=== PATIENT | female | born 1980 | race Caucasian/White ===

== ENCOUNTER 2021-10-21 15:48 | Emergency (ER) | payer OTHER, SELFPAY ==
[2021-10-21 16:32] VITALS: BP 128/77; PULSE 85; TEMP 37; O2SAT 98; BMI 41.3
--- NOTE | 2021-10-21 19:20 | CRLHL7_ITS ---
For Patients: As a result of the Century Cures Act, medical imaging exams and procedure reports are released immediately into your electronic medical record. You may view this report before your referring provider. If you have questions, please contact your health care provider. INDICATION: Shortness of breath. TECHNIQUE: AP portable chest. COMPARISON: Two-view chest September 02, 2017. FINDINGS: Clear lungs. Normal heart size and pulmonary vascularity. Normal included skeleton. IMPRESSION: Negative chest. No change other than technique. Dictated by John Poon MD @ 10/21/2021 7:49:43 PM (Electronically Signed)
[2021-10-21 19:53] VITALS: BP 141/80; PULSE 64; RESP 64; TEMP 36.8; O2SAT 97
[2021-10-21 20:33] LABS: Chloride* 103 mmol/L (96-114); Potassium* 3.7 mmol/L (3.6-5.1); Sodium* 137 mmol/L (135-149)
[2021-10-21 20:36] LABS: Creatinine* 0.6 mg/dL (0.5-1.5); Est. Creatinine Clearance* 130.25; Estimated Glomerular Filt Rate 116 ml/min; Hemoglobin* 12.5 gm/dL (12.0-16.0); Red Blood Count 4.68 m/uL (4.00-5.20); White Blood Count* 8.51 K/uL (4.50-11.00)
[2021-10-21 20:37] LABS: Blood Urea Nitrogen* 14 mg/dL (5-24); Calcium* 9.2 mg/dL (8.4-10.6); Carbon Dioxide* 24 mmol/L (20-32); Glucose* 101 mg/dL (60-115); Hematocrit 37.7 % (33.0-51.0); Mean Corpuscular HGB Conc 33 gm/dL (32-36); Mean Corpuscular Hemoglobin 27 pg (26-34); Mean Corpuscular Volume 81 fL (80-100); Platelet Count* 334 K/uL (140-440); RDW Coefficient of Variation % 13.9 % (11.5-15.5)
[2021-10-21 20:38] LABS: Basophils Percent Auto 0.2 % (0.0-3.0); Eosinophils Percent Auto 0.7 % (0.0-7.0); Lymphocytes Percent Auto 24.6 % (20-44); Monocytes Percent Auto 5.4 % (0.0-11.0)
[2021-10-21 20:39] LABS: Slide Review Reflex No
[2021-10-21 20:40] LABS: C Reactive Protein* 1.2 mg/dL (0.5-1.0)
--- NOTE | 2021-10-21 20:53 | ED_ITS ---
HPI - General Adult General Date Seen: 10/21/21 Chief complaint: Dizziness/Vertigo Stated complaint: Dizziness Time Seen by Provider: 10/21/21 19:02 Source: patient History of Present Illness HPI narrative: Patient is a 40-year-old woman who presents for evaluation of near syncope, concerns about a lump in her right chest, and also concerns about ongoing fatigue. She has an appointment made with her primary doctor for later this week regarding the lump on her chest, which she has been noticing for the past several days or so. Today however, she was at work when she suddenly felt a sharp pain in the area that lump, and then felt a warm sensation wash across her chest on both sides and then into her arms. Then she felt lightheaded like she might faint. She did not faint, and feeling past, but then she became concerned that all these things might be linked and thought she should be checked out. 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 She says that she was worked up once for abnormal coagulopathies and this was negative. She does not have any chest pain per se, does not have any shortness of breath. She always has some swelling in her ankles related to previous vein stripping but does not have any leg pain. She is concerned about possible thyroid disease, she says that she has had unusual fatigue for quite some time, she has tried to lose weight unsuccessfully, and feels that she has had some unusual hair loss as well. She says that her thyroid has been tested in the past but she does not feel that it has been looked into as thoroughly as it should be. Related Data Home Medications Medication Instructions Recorded Confirmed No Known Home Medications 10/21/21 10/21/21 Allergies Allergy/AdvReac Type Severity Reaction Status Date / Time No Known Drug Allergies Allergy Verified 10/21/21 16:38 Review of Systems Status of ROS: Reports: 10 or more systems reviewed and unremarkable except as noted in History and below [facility] Social History Smoking Status: Former smoker Do you use any of these nicotine containing products: None How often do you have a drink containing alcohol: monthly or less How many standard drinks containing alcohol do you have on a typical day: 1 or 2 How often do you have six or more drinks on one occasion: Never AUDIT-C Alcohol total score: 1 Non-prescribed substance use: denies use Exam Narrative: Exam Narrative: Vital signs as noted above. In general, an alert, well-appearing woman. Head: Normocephalic, atraumatic. Eyes: Pupils are equal reactive. Extraocular movements are full. Conjunctivae are normal. ENT: Mucous membranes are moist. Throat is normal. Neck: Supple without lymphadenopathy. No masses. Thyroid is normal. Heart: Regular rate and rhythm. No murmur or rub. Chest wall is normal. The mass that she feels I believe is the end of her clavicle on the right. Lungs: Clear bilaterally. No increased work of breathing, crackles or wheezes. Abdomen: Soft and nontender. No organomegaly. Extremities: Well perfused. Scant edema bilateral ankles. No calf tenderness. Pulses intact. Neurologic: Patient is alert and oriented to person and place. Speech is fluent. Face is symmetric. Moves all extremities equally. Affect: Normal. Skin: Warm and dry. Well perfused. Const: Vital Signs, click to edit/add: Vital Signs - 24 hr 10/21/21 16:32 10/21/21 19:53 Temperature 98.6 F 98.2 F Pulse Rate [Pulse Oximeter] 85 64 Respiratory Rate 64 H Blood Pressure [Ri ght Upper Arm] 128/77 141/80 H Pulse Oximetry 98 97 Oxygen Delivery Me thod Room Air Room Air Course Course Hospital Course: An EKG by my review shows a normal sinus rhythm, ventricular rate of 65. QT corrected is [address] segment changes. P.r. is normal at 180 milliseconds. She had a portable chest x-ray which by my review is n egative. No pneumothorax, infiltrate or unusual masses. The final radiology read is likewise negative. Labs thus far show a white blood cell count of 8.5, hemoglobin of 12.5. D-dimer is negative at 0.4. Electrolytes are normal, sodium 137, potassium 3.7. CRP is very slightly elevated at 1.2. TSH is currently pending I discussed with her that her episode earlier sounds most consistent with a vasovagal type spell to me. I do not see anything concerning on her EKG and at this time do not have specific reason to suspect dysrhythmia. She is not reporting palpitations. Her D-dimer is reassuringly negative, I do not think this represents pulmonary embolism. We did talk about her fatigue and difficulty losing weight, these can certainly be multifactorial, and while it is tempting to believe that these can be solved with something as simple as taking Synthroid, often it is not that straight forward. TSH is pending at this time, patient has been in the emergency department for a significant amount of time due to long wait times in triage. I am comfortable sending her home with a TSH pending, if it is abnormal we can contact her by phone. She would prefer that as well. She does have an appointment later this week and she can keep that with her primary doctor. If she has any fainting spells or significant worsening return to the emergency department. Otherwise, follow-up as planned. Vital Signs Vital signs: Initial Vital Signs Temperature 98.6 F 10/21/21 16:32 Temperature Source Temporal Artery Scan 10/21/21 16:32 Pulse Rate 85 10/21/21 16:32 Blood Pressure 128/77 10/21/21 16:32 Blood Pressure Mean 94 10/21/21 16:32 Blood Pressure Position Supine 10/21/21 16:32 Pulse Oximetry 98 10/21/21 16:32 Oxygen Delivery Method 10/21/21 16:32 Vital Signs Temperature 98.6 F 10/21/21 16:32 Pulse Rate 85 10/21/21 16:32 Blood Pressure 128/77 10/21/21 16:32 Pulse Oximetry 98 10/21/21 16:32 Oxygen Delivery Method 10/21/21 16:32 Temperature 98.2 F 10/21/21 19:53 Pulse Rate 64 10/21/21 19:53 Respiratory Rate 64 H 10/21/21 19:53 Blood Pressure 141/80 H 10/21/21 19:53 Pulse Oximetry 97 10/21/21 19:53 Oxygen Delivery Method 10/21/21 19:53 Medical Decision Making Lab Data Labs: Lab Results 10/21/21 10/21/21 10/21/21 Range/Units 19:49 19:49 19:49 WBC 8.51 (4.50-11.00) K/uL RBC 4.68 (4.00-5.20) m/uL Hgb 12.5 (12.0-16.0) gm/dL Hct 37.7 (33.0-51.0) % MCV 81 (80-100) fL MCH 27 (26-34) pg MCHC 33 (32-36) gm/dL RDW Coeff of Karen 13.9 (11.5-15.5) % Plt Count 334 (140-440) K/uL Neut % (Auto) 69.0 (42.0-72.0) % Lymph % (Auto) 24.6 (20-44) % Warren % (Auto) 5.4 (0.0-11.0) % Eos % (Auto) 0.7 (0.0-7.0) % Baso % (Auto) 0.2 (0.0-3.0) % Neut # (Auto) 5.90 (1.7-7.0) K/uL Lymph # (Auto) 2.10 (0.90-2.90) K/uL Warren # (Auto) 0.50 (0.00-0.90) K/UL Eos # (Auto) 0.10 (0.00-0.50) K/uL Baso # (Auto) 0.00 (0.00-0.30) K/uL Abs Immat Gran (auto) 0.00 (0.00-0.30) K/uL Imm/Tot Granulo (auto) 0.0 % ESR (2-20) mm/hr D-Dimer Quant (PE/DVT) 0.40 (0.00-0.50) ug/ml Sodium 137 (135-149) mmol/L Potassium 3.7 (3.6-5.1) mmol/L Chloride 103 (96-114) mmol/L Carbon Dioxide 24 (20-32) mmol/L BUN 14 (5-24) mg/dL Creatinine 0.6 (0.5-1.5) mg/dL Estimated Creat Clear 130.25 Estimated GFR 116 ml/min Glucose 101 (60-115) mg/dL Calcium 9.2 (8.4-10.6) mg/dL C-Reactive Protein 1.2 H (0.5-1.0) mg/dL 10/21/21 Range/Units 19:49 WBC (4.50-11.00) K/uL RBC (4.00-5.20) m/uL Hgb (12.0-16.0) gm/dL Hct (33.0-51.0) % MCV (80-100) fL MCH (26-34) pg MCHC (32-36) gm/dL RDW Coeff of Karen (11.5-15.5) % Plt Count (140-440) K/uL Neut % (Auto) (42.0-72.0) % Lymph % (Auto) (20-44) % Warren % (Auto) (0.0-11.0) % Eos % (Auto) (0.0-7.0) % Baso % (Auto) (0.0-3.0) % Neut # (Auto) (1.7-7.0) K/uL Lymph # (Auto) (0.90-2.90) K/uL Warren # (Auto) (0.00-0.90) K/UL Eos # (Auto) (0.00-0.50) K/uL Baso # (Auto) (0.00-0.30) K/uL Abs Immat Gran (auto) (0.00-0.30) K/uL Imm/Tot Granulo (auto) % ESR 7 (2-20) mm/hr D-Dimer Quant (PE/DVT) (0.00-0.50) ug/ml Sodium (135-149) mmol/L Potassium (3.6-5.1) mmol/L Chloride (96-114) mmol/L Carbon Dioxide (20-32) mmol/L BUN (5-24) mg/dL Creatinine (0.5-1.5) mg/dL Estimated Creat Clear Estimated GFR ml/min Glucose (60-115) mg/dL Calcium (8.4-10.6) mg/dL C-Reactive Protein (0.5-1.0) mg/dL Discharge Plan Discharge Clinical Impression: Near syncope Patient Disposition: Home, Self-Care Condition: Improved Instructions: Near Syncope (ED) Additional Instructions: Follow-up with your doctors plan. Your thyroid test is pending at this time but we will call you if it is significantly abnormal. This can be followed up with your primary doctor. If you have fainting spells, or other acute worsening, return to the emergency department at any time. Prescriptions: No Action No Known Home Medications Follow Up/Referrals: Nhung Michelle, [employer], [employer] [Primary Care Provider] - Stand Alone Forms: MyHealth Info Instructions
[2021-10-21 21:18] LABS: Erythrocyte SedimentationRate* 7 mm/hr (2-20)
== END 2021-10-21 21:25 | disposition home or self-care (01) ==
PROVIDERS: Emergency Provider Emergency Medicine; PCP Nurse Practitioner Family
DX: R42 Dizziness and giddiness (principal)
CPT/HCPCS: 36415; 71045; 80048; 84443; 85025; 85379; 85651; 86140; 93005; 99284; 99285

== ENCOUNTER 2021-10-24 08:14 | Outpatient (CLI) | payer OTHER, SELFPAY ==
[2021-10-24 16:13] LABS: Free T4 Free Thyroxine* 0.86 ng/dL (0.70-1.85)
[2021-10-26 19:46] LABS: Cortisol, Serum 6.8 ug/dL
[2021-10-26 20:08] LABS: Free T3 3.2 pg/mL (2.5-4.3)
[2021-10-26 21:15] LABS: TPO Antibody < 0.3 IU/mL (0.0-9.0); Thyroglob Bill Billed; Thyroglobulin Antibody < 0.9 IU/mL (0.0-4.0); Thyroglobulin, Serum or Plasma 8.4 ng/mL (1.3-31.8)
[2021-10-31 05:58] LABS: T3 Reverse - LC-MS/MS 11.6 ng/dL (9.0-27.0); T3, Ratio (T3:RT3) 11.1 (4.2-11.0); T3, Total - LC-MS/MS 129 ng/dL (80-200)
== END 2021-10-24 08:15 | disposition home or self-care (01) ==
PROVIDERS: PCP Nurse Practitioner Family; Visit Provider Nurse Practitioner Family
DX: R53.83 Other fatigue (principal)
CPT/HCPCS: 36415; 82533; 84439; 84480; 84481; 84482; 86376; 86800

== ENCOUNTER 2022-02-23 10:23 | Outpatient (CLI) | payer OTHER, SELFPAY ==
[2022-02-23 14:36] LABS: Vitamin B12* 767 pg/mL (243-894)
== END 2022-02-23 10:24 | disposition home or self-care (01) ==
PROVIDERS: PCP Nurse Practitioner Family; Visit Provider Nurse Practitioner Family
DX: Z13.21 Encounter for screening for nutritional disorder (principal)
CPT/HCPCS: 82607

== ENCOUNTER 2022-05-25 11:10 | Outpatient (CLI) | payer OTHER, SELFPAY ==
--- NOTE | 2022-05-25 11:30 | CRLHL7_ITS ---
For Patients: As a result of the Century Cures Act, medical imaging exams and procedure reports are released immediately into your electronic medical record. You may view this report before your referring provider. If you have questions, please contact your health care provider. BILATERAL SCREENING MAMMOGRAM WITH COMPUTER-AIDED DETECTION AND TOMOSYNTHESIS TECHNIQUE: CC and MLO views were obtained. These mammographic images have been obtained using full-field digital technique. These mammographic images were interpreted with the benefit of computer-aided detection. Breast Tomosynthesis was used in this interpretation. COMPARISON FILM: Baseline. FINDINGS: There are scattered areas of fibroglandular density IMPRESSION: There is no radiographic evidence for malignancy. ASSESSMENT: BI-RADS Category 1: Negative RECOMMENDATION: Routine screening mammogram in 1 year. A lay language report of this examination will be provided to the patient. Baldev Thomas M.D. Diagnostic Radiologist [email or web address] TONJA/chana / be/Dictated by: Baldev Thomas MD @ 05/25/2022 12:04:00 PM (Electronically Signed)
== END 2022-05-25 11:11 | disposition home or self-care (01) ==
LOC: MAMMO 11:11
PROVIDERS: PCP Nurse Practitioner Family; Visit Provider Nurse Practitioner Family
DX: Z12.31 Encounter for screening mammogram for malignant neoplasm of breast (principal)
CPT/HCPCS: 77063; 77067

== ENCOUNTER 2023-03-29 09:09 | Outpatient (CLI) | payer OTHER, SELFPAY ==
[2023-03-29 13:51] LABS: Chlamydia DNA Amplified* NOT DETECTED (No Detected); GC DNA Amplified* NOT DETECTED (No Detected)
== END 2023-03-29 09:10 | disposition home or self-care (01) ==
PROVIDERS: PCP Nurse Practitioner Family; Visit Provider Obstetrics & Gynecology
DX: N93.8 Other specified abnormal uterine and vaginal bleeding (principal); Z11.3 Encounter for screening for infections with a predominantly sexual mode of transmission
CPT/HCPCS: 82627; 83001; 83498; 84146; 84403; 87491; 87591

== ENCOUNTER 2023-03-29 13:43 | Outpatient (CLI) | payer OTHER, SELFPAY ==
--- NOTE | 2023-03-29 14:00 | CRLHL7_ITS ---
For Patients: As a result of the Century Cures Act, medical imaging exams and procedure reports are released immediately into your electronic medical record. You may view this report before your referring provider. If you have questions, please contact your health care provider. INDICATION: Dysfunctional uterine bleeding TECHNIQUE: Transabdominal and transvaginal scanning was performed. Transvaginal scanning was performed to optimally evaluate the endometrium and adnexa. Ovarian blood flow was evaluated with color-flow and pulsed Doppler. COMPARISON: None. FINDINGS: The uterus is normal in size and shape. The uterus measures 8.9 x 4.8 x 5.2 cm. No uterine mass is evident. The endometrial stripe is normal in thickness at 11 mm. A 4.1 x 4.0 x 3.2 cm right ovarian cyst containing uniform low level echoes is demonstrated. An additional 4.0 x 4.0 x 3.0 cm right ovarian cyst containing a number of low level echoes is demonstrated as well as a simple 3.2 x 3.0 x 1.7 cm right ovarian cyst. A 3.3 x 2.9 x 2.3 cm left ovarian cyst containing uniform low level echoes is demonstrated as well as a simple 2.4 x 2.1 x 1.6 cm left ovarian cyst. The right ovary measures 7.5 x 5.0 x 4.9 cm and left 5.3 x 4.0 x 2.9 cm. Ovarian blood flow is demonstrated with color-flow and pulsed Doppler. No adnexal mass is evident. No free fluid is demonstrated. IMPRESSION: 4.1 cm right ovarian cyst and 3.3 cm left ovarian cyst containing a uniform low level echoes and 4.0 cm right ovarian cyst containing a few low level echoes. A simple right ovarian cyst measuring up to 3.2 cm and a simple 2.4 cm left renal cyst also. Dictated by Allan Mcgrath MD @ 03/30/2023 1:26:49 PM (Electronically Signed)
== END 2023-03-29 13:44 | disposition home or self-care (01) ==
PROVIDERS: PCP Nurse Practitioner Family; Visit Provider Obstetrics & Gynecology
DX: N93.8 Other specified abnormal uterine and vaginal bleeding (principal); N83.201 Unspecified ovarian cyst, right side
CPT/HCPCS: 76830; 76856; 93976

== ENCOUNTER 2023-05-24 09:02 | Outpatient (CLI) | payer OTHER, SELFPAY ==
--- NOTE | 2023-05-24 09:15 | US_ITS ---
Patient: CASSANDRA BOYD Facility:?[facility] Patient ID:?[id number] Site Patient ID:?[id number]. Site :?[id number] Study:?US-Pelvis TRANSVAGINAL-05/24/2023 10:35:40 AM Ordering Physician:ERIKA ALY Final Report: CLINICAL HISTORY: ENDOMETRIOSIS Comparison 03/29/2023 TECHNIQUE: 2D ceballos scale and color Doppler images were acquired of the pelvis using a transvaginal approach. FINDINGS: On transvaginal imaging, the myometrium has a mildly heterogeneous echotexture. The uterus measures 5.3 x 5.9 cm. The endometrial lining measures 11.3 mm in thickness. The left ovary measures 5.7 x 3.5 x 4.2 cm in size and the right ovary measures 7.0 x 3.6 x 4.7 cm. The ovaries demonstrate normal arterial and venous blood flow on color Doppler analysis. There are no suspicious fluid collections within the cul-de-sac. Complex right ovarian cyst with diffuse low-level internal echoes measures 4.5 x 2.8 x 4.4 cm, previously measuring 4.0 x 3.2 x 4.1 cm. Simple right ovarian cyst is present measuring 2.8 x 2.5 x 3.2 cm. Complex left ovarian cyst with diffuse low-level internal echoes again noted measures 4.1 x 3.0 x 3.6 cm, previously measuring 2.9 x 2.3 x 3.3 cm. Similar left ovarian cyst measures 2.2 x 1.8 x 2.7 cm, previously measuring 2.4 x 1.6 x 2.1 cm. IMPRESSION: Bilateral endometriomas, similar to the prior study. Dictated by Baldev Thomas MD @ 05/24/2023 12:31:41 PM Signed by:?Baldev Thomas MD @05/24/2023 12:31:41 PM (Electronic Signature)
== END 2023-05-24 09:03 | disposition home or self-care (01) ==
LOC: US 09:03
PROVIDERS: PCP Nurse Practitioner Family; Visit Provider Obstetrics & Gynecology
DX: N80.9 Endometriosis, unspecified (principal); N94.89 Other specified conditions associated with female genital organs and menstrual cycle
CPT/HCPCS: 76830; 93976

== ENCOUNTER 2023-11-24 08:06 | Emergency (ER) | payer OTHER, SELFPAY ==
[2023-11-24 08:14] VITALS: BP 132/86; PULSE 76; RESP 16; TEMP 36.6; O2SAT 99; BMI 32.0
--- NOTE | 2023-11-24 08:25 | CRLHL7_ITS ---
For Patients: As a result of the Century Cures Act, medical imaging exams and procedure reports are released immediately into your electronic medical record. You may view this report before your referring provider. If you have questions, please contact your health care provider. INDICATION: Calf pain COMPARISON: None. TECHNIQUE: York-scale, color, and duplex Doppler imaging of the right lower extremity veins. Compression and augmentation attempted where anatomically and clinically feasible. FINDINGS: Laterality: Right Examined veins: Common femoral, femoral, popliteal, peroneal, posterior tibial Proximal greater saphenous The examined veins are patent with normal grayscale appearance and normal compressibility where anatomically feasible. Normal color Doppler flow. Normal venous waveforms on duplex Doppler ultrasound with normal augmentation. The left common femoral vein was sampled for comparison and is normal. IMPRESSION: No deep vein thrombosis in the right lower extremity. Dictated by Darcy Garcia MD @ 11/24/2023 8:56:17 AM (Electronically Signed)
--- NOTE | 2023-11-24 08:29 | ED_ITS ---
HPI - General Adult General Chief complaint: Extremity Pain/Injury, Lower Stated complaint: right leg pain for a few days Time Seen by Provider: 11/24/23 08:17 History of Present Illness HPI narrative: 43-year-old female has had history of superficial DVT has had vein stripping in her legs, presents with right posterior calf pain for the last 3 days. She is concerned about a DVT and presents for evaluation. She has had no shortness of breath, no chest pain, no history of DVT. She had superficial phlebitis as mention she has had vein stripping. She plans on seeing a vein specialist in the future as well. She has had no other symptoms, no fever, no shortness of breath, she does report she walks 4-5 miles a day and felt a sharp pain in her right calf couple weeks ago and certainly that could have been something of muscular in issue. Related Data Home Medications ?Medication ?Instructions ?Recorded ?Confirmed metformin 500 mg tablet 500 mg PO QDAY 05/28/23 11/24/23 tirzepatide (weight loss) 10 12.5 mg subcut .qmonth 05/28/23 11/24/23 mg/0.5 mL subcutaneous pen injector (Zepbound) levonorgestrel 21 mcg/24 hr (up to 1 device intrauterine ONCE 06/04/23 11/24/23 8 years) 52 mg intrauterine device (Mirena) testosterone 1 % (50 mg/5 gram) topical 11/24/23 transdermal gel packet Previous Rx's ?Medication ?Instructions ?Recorded progesterone micronized 100 mg 200 mg (2 x 100 mg) PO QAM 30 days 07/05/23 capsule (Prometrium) #60 caps Allergies Allergy/AdvReac Type Severity Reaction Status Date / Time No Known Drug Allergies Allergy Verified 11/24/23 08:12 Review of Systems Status of ROS: Reports: 6 or more systems reviewed and unremarkable except as noted in History and below [facility] Medical History History of varicella ?Z86.19 - Personal history of other infectious and parasitic diseases (ICD- 10) History of blood clots ?Z86.718 - Personal history of other venous thrombosis and embolism (ICD-10) Anxiety ?F41.9 - Anxiety disorder, unspecified (ICD-10) Acute cholecystitis ?K81.0 - Acute cholecystitis (ICD-10) Surgical History Status post laparoscopic cholecystectomy ?Z90.49 - Acquired absence of other specified parts of digestive tract (ICD- 10) History of vein stripping ?Z98.890 - Other specified postprocedural states (ICD-10) History of tonsillectomy ?Z90.89 - Acquired absence of other organs (ICD-10) History of adenectomy ?Z90.89 - Acquired absence of other organs (ICD-10) Family History Paternal Grandfather Heart disease Maternal Grandfather Prostate cancer Social History Smoking Status: Former smoker Do you use any of these nicotine containing products: None How often do you have a drink containing alcohol: monthly or less How many standard drinks containing alcohol do you have on a typical day: 1 or 2 How often do you have six or more drinks on one occasion: Never AUDIT-C Alcohol total score: 1 Non-prescribed substance use: denies use Little interest or pleasure in doing things: not at all Feeling down, depressed, or hopeless: not at all Exam Narrative: Exam Narrative: Objective: Vital signs are within normal limits O2 sat 99% Patient is pleasant noncyanotic alert no shortness of breath Pulse regular Right lower extremity shows no marked swelling, she has got some chronic changes from her superficial vein stripping in her ankles bilaterally, her right leg does not appear swollen, she has a small nodule in her right posterior thigh that feels like a lipoma. No superficial phlebitis noted, negative Homans sign. She does have some mild tenderness to her calf to compression. Const: Vital Signs, click to edit/add: Vital Signs - 24 hr 11/24/23 08:14 Temperature 97.9 F Pulse Rate [Pulse Oximeter] 76 Respiratory Rate 16 Blood Pressure [Ri ght Upper Arm] 132/86 Pulse Oximetry 99 Oxygen Delivery Me thod Room Air Course Vital Signs Vital signs: Initial Vital Signs Temperature 97.9 F 11/24/23 08:14 Temperature Source Temporal Artery Scan 11/24/23 08:14 Pulse Rate 76 11/24/23 08:14 Pulse Rhythm Regular 11/24/23 08:14 Pulse Strength 3+ Normal 11/24/23 08:14 Respiratory Rate 16 11/24/23 08:14 Blood Pressure 132/86 11/24/23 08:14 Blood Pressure Mean 101 11/24/23 08:14 Blood Pressure Position Sitting 11/24/23 08:14 Pulse Oximetry 99 11/24/23 08:14 Oxygen Delivery Method Room Air 11/24/23 08:14 Vital Signs Temperature 97.9 F 11/24/23 08:14 Pulse Rate 76 11/24/23 08:14 Respiratory Rate 16 11/24/23 08:14 Blood Pressure 132/86 11/24/23 08:14 Pulse Oximetry 99 11/24/23 08:14 Oxygen Delivery Method Room Air 11/24/23 08:14 Temperature 97.9 F 11/24/23 08:14 Pulse Rate 76 11/24/23 08:14 Respiratory Rate 16 11/24/23 08:14 Blood Pressure 132/86 11/24/23 08:14 Pulse Oximetry 99 11/24/23 08:14 Oxygen Delivery Method Room Air 11/24/23 08:14 Medical Decision Making MDM Narrative Medical decision making narrative: 40-year-old female with right calf pain with history of superficial phlebitis. Rule out DVT. Patient will get an ultrasound right lower extremity. If this is negative then symptomatic management stretching, ibuprofen, ice to the calf. If positive will treat accordingly. Please see disposition. Addendum 8:46 a.m.. The patient's Doppler scan of her right lower extremities negative for DVT. Likely this is some kind musculoskeletal issue and I think good stretching, ice, ibuprofen would be appropriate. She was relieved by this. We can recheck as needed. Follow up with regular doctor next week if she continues to have problems as PT or other assessment might be necessary. I would also recommend that she reduce her walking frequency and duration for the next couple of weeks. Discharge Plan Discharge Clinical Impression: Leg pain, right Patient Disposition: Home, Self-Care Condition: Stable Additional Instructions: Light activity, stretch the right leg, ice to the back of the calf area, Advil as needed, recheck with regular doctor next week if this isn't fully resolved. Recommend reduce the frequency and intensity of your walking every day. Activity Level: Light activity Discharge Diet: Regular Prescriptions: No Action metformin 500 mg tablet 500 mg PO QDAY progesterone micronized [Prometrium] 100 mg capsule 200 mg PO QAM 30 Days Qty: 60 3RF Zepbound 10 mg/0.5 mL pen injector 12.5 mg subcut .qmonth Mirena 21 mcg/24 hours (8 yrs) 52 mg intrauterine device 1 device intrauterine ONCE Rx Instructions: as a single dose testosterone 1 % (50 mg/5 gram) gel in packet topical Follow Up/Referrals: Nhung Michelle, DIRECTOR OF DANCE, [employer] [Primary Care Provider] - Stand Alone Forms: [facility] Inst[facility]
== END 2023-11-24 09:01 | disposition home or self-care (01) ==
PROVIDERS: Emergency Provider Family Medicine; PCP Nurse Practitioner Family
DX: M79.604 Pain in right leg (principal)
CPT/HCPCS: 93971; 99283; 99284

== ENCOUNTER 2023-12-06 08:14 | Outpatient (CLI) | payer OTHER, SELFPAY ==
--- NOTE | 2023-12-06 08:15 | CRLHL7_ITS ---
For Patients: As a result of the Century Cures Act, medical imaging exams and procedure reports are released immediately into your electronic medical record. You may view this report before your referring provider. If you have questions, please contact your health care provider. CLINICAL HISTORY: Endometriosis TECHNIQUE: 2D ceballos scale and color Doppler images were acquired of the pelvis using a transvaginal approach. Comparison 05/24/2023 FINDINGS: The uterus measures 9.8 x 4.5 x 5.8 cm. The endometrial lining measures 3.3 mm in thickness. IUD is present in normal position within the endometrial canal. The left ovary measures 5.1 x 3.0 x 4.6 cm in size and the right ovary measures 3.9 x 2.2 x 3.4 cm. The ovaries demonstrate normal arterial and venous blood flow on color Doppler analysis. There are no suspicious fluid collections within the cul-de-sac. Complex left ovarian cyst with diffuse low-level internal echoes measures 2.7 x 2.6 x 1.8 cm. Complex left ovarian cyst with layering debris noted measures 3.8 x 2.1 x 2.9 cm. Additional complex right ovarian cyst noted with diffuse low-level internal echoes measuring 2.7 x 2.1 x 2.3 cm. IMPRESSION: Bilateral endometriomas measuring 2.7 cm on the right and 2.7 cm on the left. Incidental complex left ovarian cyst with layering debris also noted measuring 3.8 cm. Dictated by Baldev Thomas MD @ 12/07/2023 1:23:29 PM (Electronically Signed)
== END 2023-12-06 08:15 | disposition home or self-care (01) ==
LOC: US 08:15
PROVIDERS: Visit Provider Obstetrics & Gynecology
DX: N80.9 Endometriosis, unspecified (principal); N83.202 Unspecified ovarian cyst, left side; N94.89 Other specified conditions associated with female genital organs and menstrual cycle
CPT/HCPCS: 76830

== ENCOUNTER 2023-12-17 09:30 | Outpatient (RCR) | payer OTHER, SELFPAY ==
--- NOTE | 2023-11-01 17:47 | PT.OPDNX ---
PT [facility] Daily Note PT [facility] Outpatient Daily Note Start: 07/26/23 12:56 Freq: Status: Active Protocol: Document 11/01/23 09:31 ARR (Rec: 11/01/23 10:32 ARR [email or web address]) E-signed By Jacquelyn Elias DPT PT OP Daily Progress Note Visit Information Note Type Daily Note,Recert/Progress Note Visit Number [id number] Insurance Information Insurance Name [employer] Insurance Information/Comments Eval: 07/25 / re cert 10/31 POC 1 x 12 / every other wk x 10 visits Medical Diagnosis N80.9 endometriosis Dyspareunia Treating Diagnosis R10.30 Lower abdominal pain, unspecified M53.3 Coccygodynia R10.2 Pelvic and perineal pain 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 But not doing exercises due to severe ear infection. Has had a hard time laying down due to ear pain -Did start bioidentical estrogen too - helped a lot with pain. Had been on progesterone prior to that. The collaborate - Loretta John. Home Exercise Home Exercise Comments OTHER: -check ins and drops handout Access Code: [email or web address] URL: [email or web address]/ Date: 08/02/2023 Prepared by: Jacquelyn Elias Exercises - Sidelying Open Book Thoracic Rotation with Knee on Foam Roll - 1 x daily - 5-7 x weekly - 6-8 reps - Sidelying Diaphragmatic Breathing - 1 x daily - 5-7 x weekly - 6-8 reps - Thoracic Extension Mobilization on Foam Roll - 1 x daily - 4-5 x weekly - 4 sets - 2-3 reps - Diaphragmatic Breathing in Supported Child's Pose with Pelvic Floor Relaxation - 1 x daily - 5-7 x weekly - 1-2 min hold Objective Other/Pertinent Objective PFQ -Bladder 45, bowel 34, prolapse 2/15, sexual 40 Functional Test Performed & Score 7/8: LS flexion bilateral hip pain fingers to ankles. LS extension 75% segmental mobility restriction with reduced lateral hip pain. Passive SLR negative. PA L4-5 hypomobile. INTERNAL EXAMINATION INTRAVAGINAL: -Sensation: intact to touch -Perineum: normal -Lifting contraction: bulge / visible lift / nil -Bulge: bulge -Prolapse: did not assess Tenderness/pain to palpation/ tone: -Layer 1: ischiocavernosus bilat / bulbospongiousus / superficial transverse perineal bilat L>R -Layer 2: / deep transverse perineal / sphincter urethrovaginalis bilat L>R -Layer 3: puborectalis / pubococcygeus / iliococcygeus Bilat with L>R. Reproduction of Tailbone pain with palpation of bilat IC, UT Strength ( R / C / L): -Power (MMT): 2 -Endurance: 5 -Reps:3 -Fast twitch: not assessed -Relaxation of PFM after contractions: delayed *Reduced squeeze strength, greater AP lift Other: -Breathing examination: dec?d posterior and lateral ribcage mvmt with inhalation -Coordination: reduced TA contraction, inc'd PFC EXTERNAL OBJECTIVE 08/02/23: -Movement screen: MS flexion reduced TS and LS, HS hypermobility. MS extension reduced TS and LS. MS rotation 50% limitation to the R -SLS: Able to hold 30 sec, mild drop. -Posture: IC elevated 1 thumbwidth on L, elevated sh girdle on R, inc'd TS kyhposis , fwd head and rounded shoulders with inc'd sh protraction/abduction on R side with inc'd L TS rotation at rest. Neutral foot posture. Inc'd PPT glut gripping with glut atrophy. Supine R MM and ASIS lower. -Hip PROM: ER 80 L / 90 R. IR 40 bilat. -Strength: Glut medius 2+ R, 3 - L Other Tests: -Rib flare on R side rib angle >110 -Coordination: gripping with upper abs with bearing -Breathing: dec?d posterior and lateral ribcage mvmt with inhalation -DR: negative Special tests: -Flexibility: pos HF R>>L Patient Instructed in Risks/Benefits Yes Neuromuscular Re-Ed Neuromuscular Reeducation Minutes ( 53 minutes) Neuromuscular Reeducation Comments NMR: Indicated to facilitate improved muscle firing and postural awareness through the use of tactile cues. -Bicep curl 8# x 10 -Bentover tricep ext 8# x 10 reps -Hip hinging practice x 10 reps -Sh ext yellow tubing 3 x 10 reps -Supine TA with alt LE may x 6 reps -Supine TA with alt Leg extension <> may x 10 reps ea side -Quadruped rockbacks x 10 reps -Quadruped TA on exhale x 5 reps -Quadruped TA on exhale with UE flexion x 5 reps ea side -Quadruped TA on exhale with arm hand of floor x 5 reps -hip hinging at wall x 10 Treatment Minutes Timed Code Treatment Minutes 53 Total Treatment Time 53 Billing Units Neuromuscular Reeducation Units 4 Assessment/Impression Assessment/Impression Pt noting significant pain reduction with starting compound estrogen tablet. Focus of session on motor firing patterns, and improving awareness of hip/hinging to improve TA/glut firing. Cues throughout for form, breathing , and motor firing patterns. Will need continued work on proximal strengthening and hip hinging in future visits. Pt to benefit from ongoing therapy - POC justification below for an additional 10 visits every other week. Plan of Care Physical Therapy Goals STG (within 6 weeks) 1)Pt will initiate HEP without increased pain/symptoms - MET 2)Pt will report at least 40% improvement in tailbone pain/ symptoms since start of therapy for improved sitting tolerance. - MET 3) Pt will report no reproduction of pain/tailbone referral in pelvic floor muscles to show reduced tissue sensitivity - MET 4) Pt will report at least 40% improvement in lower abdominal and low back pain since start of therapy for improved work efficiency. 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 PROGRESSING TOWARD 4)Pt will report Marinoff scale not exceeding 1 PROGRESSING TOWARD 5) Pt will demonstrate proper coordination of motor recruitment patterns for PF then TA activation during dynamic UE/LE movements in all postures while maintaining diaphragmatic breathing pattern PROGRESSING TOWARD 6) Pt will demonstrate neutral hip hinging position without cues nearly 70% of the time to reduce flares of back pain - new goal 10/31 Daily Plan of Care Comments *Extend POC, goals -Consider wall planks, quadruped ball squeeze or hand press into ball, Recertification Information Initial Certification Date 07/26/23 Reasons to Continue Skilled Therapy Pt had been seen for coccydynia, lower abdominal pain, pelvic and perineal pain for 12 visits from 07/26/23 to 11/01/23 during this episode of physical therapy. Focus of therapy on PF lengthening, deep breathing, hip/spine mobility. Progressing toward proximal activation of TA and gluts in addition to improved awareness of hip hinging. Interventions including ther exercise, manual therapy, self -care, neuromuscular re- education. 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 Continued further skilled PT is indicated at this time at a frequency of every other week x 10 visits. COntinued PT to work on proximal strengthening , education in body mechanics and progressing spine/hip mobility. Provider Signature Shows Agreement With POC & Medical Necessity Physician Comment/Change Comment or Changes Physician NPI Number #
== END 2024-04-15 23:59 | disposition home or self-care (01) ==
PROVIDERS: PCP Nurse Practitioner Family; Visit Provider Obstetrics & Gynecology
DX: N80.9 Endometriosis, unspecified (principal); R10.30 Lower abdominal pain, unspecified; M53.3 Sacrococcygeal disorders, not elsewhere classified; N94.819 Vulvodynia, unspecified; Z51.89 Encounter for other specified aftercare
CPT/HCPCS: 84403; 97110; 97112; 97140; 97162; 97535

== ENCOUNTER 2024-04-07 07:30 | Outpatient (CLI) | payer OTHER, SELFPAY ==
[2024-04-07 11:05] LABS: Iron* 75 ug/dL (37-170)
[2024-04-07 11:22] LABS: Total Iron Binding Capacity 375 ug/dL (265-497); Vitamin D 25 Hydroxy* 85 ng/mL (30-80)
[2024-04-07 11:40] LABS: Ferritin* 10.8 ng/mL (6.24-137.0)
[2024-04-07 11:45] LABS: Percent Iron Saturation 20 % (20-50)
[2024-04-07 11:54] LABS: Vitamin B12* 894 pg/mL (243-894)
[2024-04-09 01:02] LABS: Folate, Serum >22.3 ng/mL (>=5.9)
[2024-04-09 07:20] LABS: Zinc, Serum/Plasma 86.6 ug/dL (60.0-120.0)
[2024-04-10 13:07] LABS: Sex Hormone Binding Globulin 107 nmol/L (25-122); Testosterone, Free LC-MS/MS 1.2 pg/mL (1.1-5.8); Testosterone, LC-MS/MS 16 ng/dL (9-55)
[2024-04-11 18:49] LABS: Estradiol by TMS 237.4 pg/mL
== END 2024-04-07 07:31 | disposition home or self-care (01) ==
LOC: NPINS 07:34
PROVIDERS: PCP Nurse Practitioner; Visit Provider Nurse Practitioner
DX: N95.9 Unspecified menopausal and perimenopausal disorder (principal); L65.9 Nonscarring hair loss, unspecified
CPT/HCPCS: 82306; 82607; 82670; 82728; 82746; 83540; 83550; 84270; 84402; 84403; 84630

== ENCOUNTER 2024-05-22 12:07 | Outpatient (CLI) | payer OTHER, SELFPAY | END 2024-05-22 12:08 | disposition home or self-care (01) | LOC: US 12:07 | PROVIDERS: PCP Nurse Practitioner; Visit Provider Obstetrics & Gynecology | DX: N80.9 Endometriosis, unspecified (principal); N83.201 Unspecified ovarian cyst, right side; N94.89 Other specified conditions associated with female genital organs and menstrual cycle | CPT/HCPCS: 76830; 76856 ==